=== PATIENT | female | born 1970 | race Asian ===

== ENCOUNTER → 2018-01-25 | Outpatient (CLI) | END | disposition home or self-care (01) ==

== ENCOUNTER → 2018-02-08 | Outpatient (CLI) | END | disposition home or self-care (01) ==

== ENCOUNTER 2018-06-09 18:50 | Emergency (ER) | END 2018-06-09 19:06 | disposition home or self-care (01) ==

== ENCOUNTER → 2018-11-16 | Outpatient (CLI) | END | disposition home or self-care (01) ==

== ENCOUNTER 2019-02-23 08:31 | Emergency (ER) | payer BC ==
[~2019-02-23] VITALS: Ht 162.6 cm; Wt 60.0 kg
[~2019-02-23 08:31] MED LIST: AMOX500C2 PO; GUAI5SYR2 PO; NPH10OT LEFT EAR; ONDA4TAB14 PO
[2019-02-23 08:37] VITALS: BP 123/71; PULSE 71; RESP 16; Ht 162.6 cm; Wt 60.0 kg
[2019-02-23] MEDS ORDERED: IBUP800T48 PO (09:50)
--- NOTE | 2019-02-23 11:02 | ERD ---
ER Documentation Chief Complaint Chief Complaint LEFT FOOT PAIN PURPLE DISCOLORATION HPI 48-year-old female presenting with pain to her left foot. Last night patient dropped a can on her toe and sustained pain. She has had pain when ambulating. Has not taken medications today for pain. Denies other medical problems. NKDA. Surgical history denies. Social history denies ROS All systems reviewed and are negative except as per history of present illness. Medications Home Meds Active Scripts Ibuprofen* (Motrin*) 800 Mg Tab, 800 MG PO Q6, #30 TAB Prov:MADELEINE HOGAN PA-C 02/23/19 Guaifenesin-Dextromethorphan* (Robitussin* DM) 100MG/10MG/5ML Syrup, 5 ML PO Q6H PRN for COUGH, #1 BOT Prov:XIAO BLACKWELL PA-C 06/09/18 Ondansetron (Ondansetron Odt) 4 Mg Tab.rapdis, 4 MG PO Q6H PRN for NAUSEA AND/OR VOMITING, #10 TAB Prov:XIAO BLACKWELL PA-C 06/09/18 Neomycin/Polymyxin/Hydrocort* (Cortisporin* Otic) 10 Ml Susp, 4 DROP LEFT EAR QID for 7 Days, EA Prov:XIAO BLACKWELL PA-C 06/09/18 Amoxicillin* (Amoxicillin*) 500 Mg Cap, 500 MG PO BID, #20 CAP Prov:XIAO BLACKWELL PA-C 06/09/18 Allergies Allergies: Coded Allergies: No Known Allergy (Unverified , 06/09/18) PMhx/Soc Medical and Surgical Hx: pt denies Surgical Hx History of Surgery: No Anesthesia Reaction: No Hx Neurological Disorder: No Hx Respiratory Disorders: No Hx Cardiac Disorders: No Hx Psychiatric Problems: No Hx Miscellaneous Medical Probl: Yes (dm) Hx Alcohol Use: No Hx Substance Use: No Hx Tobacco Use: No Smoking Status: Never smoker FmHx Family History: No diabetes, No coronary disease, No other Physical Exam Vitals Vital Signs Date Temp Pulse Resp B/P (MAP) Pulse Ox O2 O2 Flow FiO2 Time Delivery Rate 02/23/19 97.9 71 16 123/71 100 08:37 (88) Physical Exam GENERAL: The patient is well-appearing, well-nourished, in no acute distress CHEST: Clear to auscultation bilaterally. There are no rales, wheezes or rhonchi. HEART: Regular rate and rhythm. No murmurs, clicks, rubs or gallops. EXTREMITIES: Palpation over the base of the first toe on the left foot. Pain with flexion and extension. Cap refill less than 2 seconds. No obvious deformity. NEUROLOGIC: Alert and oriented. Cranial nerves II through XII intact. Motor strength in all 4 extremities with 5 out of 5 strength. Sensation grossly intact. SKIN: Bruising noted to the first toe of the left foot. No active bleeding but small abrasion noted to the base of the toe. Procedures/MDM DIAGNOSTIC IMAGING REPORT Patient: SALAZAR ARCE : 1970 Age: 48 Sex: F MR #: [id number] DOS: 02/23/19 0844 Ordering MD: OLIVIA HOGAN PA-C Location: [facility] Room/Bed: PROCEDURE: XR Left Foot. CLINICAL INDICATION: foot pain TECHNIQUE: AP, lateral and oblique views of the left foot was obtained. The images were reviewed on a PACS workstation. COMPARISON: None. FINDINGS: Question nondisplaced fracture at the base of the great toe proximal phalanx laterally, however no definite cortical disruption detected. No dislocation. Mild arthrosis of the MTP joint. Great toe soft tissue swelling. IMPRESSION: Great toe soft tissue swelling with question of nondisplaced fracture at the lateral base of the proximal phalanx. Correlate for injury and tenderness to that area. Mild degenerative changes at the first MTP joint. ER Course: Patient declined ortho shoe. MDM: 48-year-old female presenting with pain to her left toe. I have low suspicion for tendon or ligament rupture. Patient has questionable findings of acute fracture and she will be treated with pain medication. Patient is recommended to refrain from excessive walking and recommended to use Orth issue however she declined or so shoe application in the ER. Patient is told if symptoms change or worsen to return the ER immediately. All questions answered at discharge Departure Diagnosis: Primary Impression: Toe fracture Condition: Stable Patient Instructions: Finger and Toe Fractures (Broken Finger or Toe) Additional Instructions: FOLLOW UP WITH YOUR PRIMARY CARE PHYSICIAN TOMORROW.Return to this facility if you are not improving as expected. MADELEINE HOGAN PA-C Feb 23, 2019 11:02
== END 2019-02-23 10:32 | disposition home or self-care (01) ==
LOC: FTE 08:31
DX: S92.415A Nondisplaced fracture of proximal phalanx of left great toe, initial encounter for closed fracture (principal); E11.9 Type 2 diabetes mellitus without complications; W20.8XXA Other cause of strike by thrown, projected or falling object, initial encounter; Y92.9 Unspecified place or not applicable

== ENCOUNTER → 2019-03-07 | Outpatient (CLI) | payer BC ==
[~2019-03-07] MED LIST changes: +IBUP800T48 PO
== END | disposition home or self-care (01) ==
LOC: RAD 10:18
PROVIDERS: ATTEND Orthopaedic Surgery
DX: M79.672 Pain in left foot (principal)
CPT/HCPCS: 73620